=== PATIENT | male | born 1960 | race Caucasian/White ===

== ENCOUNTER → 2017-04-02 | Outpatient (CLI) | payer OTHER | LOC: RAD 14:43 | PROVIDERS: ATTEND Internal Medicine Hematology & Oncology | DX: C90.01 Multiple myeloma in remission (principal); C20 Malignant neoplasm of rectum | CPT/HCPCS: 77075 ==

== ENCOUNTER → 2019-04-17 | Outpatient (CLI) | payer BC ==
--- NOTE | 2019-04-17 16:07 | RADIOLOGY REPORT (SQ) ---
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 LIMITATIONS: None. FINDINGS: AP CHEST: No bony findings. Lungs are clear. LATERAL SKULL: Small lytic lesions, stable. AP BOTH HUMERI: No worrisome bone lesions. TWO-VIEW LUMBAR SPINE: No worrisome bone lesions. TWO-VIEW THORACIC SPINE: No worrisome bone lesions. AP PELVIS: Stable bone cyst left inferior pubic ramus. AP BOTH FEMURS: No worrisome bone lesions. OTHER: No other significant finding. IMPRESSION: Stable lytic lesions in the skull. No significant change. TECHNICAL DOCUMENTATION: JOB ID: [id number] [employer]- All Rights Reserved Reading location - IP/workstation name: [email or web address]
== END ==
LOC: RAD 14:47
PROVIDERS: ATTEND Internal Medicine Hematology & Oncology
DX: C90.01 Multiple myeloma in remission (principal); C20 Malignant neoplasm of rectum
CPT/HCPCS: 77075

== ENCOUNTER 2019-06-22 13:33 | Emergency (ER) | payer BC ==
[2019-06-22 13:49] VITALS: BP 128/72
--- NOTE | 2019-06-22 15:03 | ER Document Report ---
HPI - HPI Patient complains to provider of: Wound recheck Time Seen by Provider: 06/22/19 14:47 Pain Level: 2 Context: Patient is a 51-year-old male presents to the emergency department for redness and swelling to his right lower extremity. Patient was seen at this facility on 06/19/2019 for same. Was placed on 2 oral antibiotics, Keflex, Bactrim. States he has been taking them as prescribed. States he returns to the emergency department for a wound recheck. States he feels as though the redness and swelling has decreased significantly. Denies fevers. States due to his profession he is unable to sit down or elevate the leg throughout most of the day. Past Medical History - General Information source: Patient - Social History Smoking Status: Unknown if Ever Smoked Family History: Reviewed & Not Pertinent - Past Medical History Cardiac Medical History: Denies: Hx Heart Attack, Hx Hypertension Pulmonary Medical History: Denies: Hx Asthma Neurological Medical History: Denies: Hx Cerebrovascular Accident, Hx Seizures Renal/ Medical History: Denies: Hx Peritoneal Dialysis GI Medical History: Denies: Hx Hepatitis, Hx Ulcer Infectious Medical History: Denies: Hx Hepatitis Past Surgical History: Denies: Hx Open Heart Surgery, Hx Pacemaker Vertical Provider Document - CONSTITUTIONAL Agree With Documented VS: Yes Notes: GENERAL: Alert, interacts well. No acute distress. HEAD: Normocephalic, atraumatic. EYES: Pupils equal, round, and reactive to light. Extraocular movements intact. ENT: Oral mucosa moist, tongue midline. NECK: Full range of motion. Supple. Trachea midline. LUNGS: Clear to auscultation bilaterally, no wheezes, rales, or rhonchi. No respiratory distress. HEART: Regular rate and rhythm. No murmur ABDOMEN: Soft, non-tender. Non-distended. Bowel sounds present in all 4 quadrants. EXTREMITIES: Moves all 4 extremities spontaneously. normal radial and dorsalis pedis pulses bilaterally. Erythema noted to the right lower extremity with swelling. BACK: no cervical, thoracic, lumbar midline tenderness. No saddle anesthesia, normal distal neurovascular exam. NEUROLOGICAL: Alert and oriented x3. Normal speech. cranial nerves II through XII grossly intact PSYCH: Normal affect, normal mood. SKIN: Warm, dry, normal turgor. No rashes or lesions noted. - INFECTION CONTROL TRAVEL OUTSIDE OF THE [place] IN LAST 30 DAYS: No Course - Re-evaluation Re-evalutation: 06/22/19 14:57 Patient had the erythema noted to his right lower extremity outlined in surgical marker on 06/19/2019 at his visit to the emergency department. At today's visit the swelling has receded to fci down his calf. I have remarked with a surgical marker. I have discussed continued use of antibiotics prescribed with close follow-up with primary care provider. Discussed close return precautions should the erythema or swelling go above the surgical marker placed at today's visit. Patient continues to deny fevers and is overall agreement with the plan. At this time will discharge with return precautions and follow-up recommendations. Verbal discharge instructions given a the bedside and opportunity for questions given. Medication warnings reviewed. Patient is in agreement with this plan and has verbalized understanding of return precautions and the need for primary care follow-up in the next 24-72 hours. This medical record was dictated with voice recognizing software. There may be grammatical, syntax errors that are unintended. - Vital Signs Vital signs: Temp Pulse Resp BP Pulse Ox 98.0 F 84 19 128/72 H 97 06/22/19 13:47 06/22/19 13:47 06/22/19 13:47 06/22/19 13:47 06/22/19 13:47 Discharge - Discharge Clinical Impression: Encounter for wound re-check Cellulitis Qualifiers: Site of cellulitis: extremity Site of cellulitis of extremity: lower extremity Laterality: right Qualified Code(s): L03.115 - Cellulitis of right lower limb Condition: Stable Disposition: HOME, SELF-CARE Instructions: Cellulitis ([facility]) Additional Instructions: As we discussed you have been seen and treated in the emergency department for redness and swelling noted to your right lower extremity. At today's visit the redness and swelling does appear to be getting better. Patient should continue to take oral antibiotics as prescribed. Please also make sure you follow-up with your primary care provider in the next 24 to 48 hours. Please make sure you return to the emergency room should the redness or swelling go above the surgical marker hopefully today or you have any other concerns. Referrals: FOREIGN OLVERA MD [Primary Care Provider] - Follow up as needed
== END 2019-06-22 15:07 | disposition home or self-care (01) ==
LOC: ER 13:33
DX: L03.115 Cellulitis of right lower limb (principal)
CPT/HCPCS: 99282

== ENCOUNTER 2020-02-24 10:44 | Emergency (ER) | payer BC ==
[2020-02-24] MEDS ORDERED: CLINDAMYCIN 600 MG/D5W RTU 600 MG/50 ML RTUPB IV ONE (11:15)
[2020-02-24 11:40] LABS: ABSOLUTE LYMPHOCYTES (AUTO) 0.6 10^3/uL (0.5-4.7); ABSOLUTE MONOCYTES (AUTO) 0.5 10^3/uL (0.1-1.4); ABSOLUTE NEUT (AUTO) 7.8 10^3/uL (1.7-8.2); BASOPHILS % (AUTO) 0.2 % (0-2); HEMATOCRIT 38.9 % (37.9-51.0); HEMOGLOBIN 13.8 g/dL (13.5-17.0); LYMPHOCYTES % (AUTO) 6.4 % (13-45); MEAN CORPUSCULAR HEMOGLOBIN 29.7 pg (27.0-33.4); MEAN CORPUSCULAR HGB CONC 35.5 g/dL (32.0-36.0); MEAN CORPUSCULAR VOLUME 84 fl (80-97); MONOCYTES % (AUTO) 5.1 % (3-13); PLATELET COUNT 123 10^3/uL (150-450); RED BLOOD COUNT 4.64 10^6/uL (4.35-5.55); RED CELL DISTRIBUTION WIDTH 13.8 % (11.5-14.0); SEGMENTED NEUTROPHILS % (AUTO) 88.3 % (42-78); TOTAL CELLS COUNTED % (AUTO) 100 %; WHITE BLOOD COUNT 8.8 10^3/uL (4.0-10.5)
[2020-02-24 12:01] LABS: ALBUMIN 3.5 g/dL (3.5-5.0); ALKALINE PHOSPHATASE 66 U/L (38-126); ANION GAP 6 (5-19); ASPARTATE AMINO TRANSFERASE 50 U/L (17-59); BILIRUBIN,TOTAL 0.9 mg/dL (0.2-1.3); BLOOD UREA NITROGEN 16 mg/dL (7-20); CALCIUM 8.7 mg/dL (8.4-10.2); CARBON DIOXIDE 27 mmol/L (22-30); CHLORIDE 98 mmol/L (98-107); CREATINE KINASE 556 U/L (55-170); GLUCOSE 123 mg/dL (75-110); POTASSIUM 3.8 mmol/L (3.6-5.0); TOTAL PROTEIN 6.1 g/dL (6.3-8.2)
[2020-02-24 12:19] LABS: APPEARANCE,URINE SLIGHTLY-CLOUDY; BILIRUBIN,URINE NEGATIVE (NEGATIVE); COLOR,URINE AMBER; GLUCOSE, URINE NEGATIVE (NEGATIVE); KETONES,URINE NEGATIVE (NEGATIVE); LEUKOCYTE ESTERASE,URINE NEGATIVE (NEGATIVE); NITRITE,URINE NEGATIVE (NEGATIVE); PROTEIN,URINE 100 mg/dL (NEGATIVE); URINE SPECIFIC GRAVITY 1.025
--- NOTE | 2020-02-24 12:55 | ER Document Report ---
Entered by BENITO TEJEDA SCRIBE 02/24/20 1055 Acting as scribe for:DIMAS BEACH MD ED Extremity Problem, Lower - General Chief Complaint: Leg Pain Stated Complaint: LEG PAIN Time Seen by Provider: 02/24/20 10:49 Primary Care Provider: GERHARD OSUNA PA-C [COMMUNITY BASED STAFF] - Follow up as needed Mode of Arrival: Ambulatory Information source: Patient Notes: This 60 year old male patient presents to the emergency department today with complaints of right lower extremity swelling and erythema with associated fevers. Patient states that he has had chronic dermatitis but was told he had no venous insufficiency. Patient states he had generalized fatigue yesterday and a temperature of 102, which is when he first noted his right lower extremity. This 60-year-old male patient reports that his had him go for 3 mile walk on lunch break few days ago. He woke up yesterday morning and felt drained and had a temperature of 102. Yesterday he started developing some inflammation and redness to his right lower leg, and he felt weak and tired. This morning his temperature was 101 and the redness and swelling of the leg was worse. His history is significant for similar cellulitis in the same place, seen here on 06/19/2019 and was treated with 10-day course of Keflex and Septra. It did improve quite a lot but did not completely resolve. He saw his primary care provider on 07/03/2019 and was put on a 7-day course of clindamycin and states it cleared completely following that course of clindamycin. He does wear compression hose due to the edema to his lower extremities, and has a job requiring him to be up on his feet all day. He is not very compliant about elevating his feet at home. TRAVEL OUTSIDE OF THE [place] IN LAST 30 DAYS: No - Related Data Allergies/Adverse Reactions: ibuprofen [Ibuprofen] Allergy (Verified 02/24/20 10:54) SWELLING/HARD TO SWALLOW peanut Allergy (Verified 02/24/20 12:21) SWELLING/REDNESS/HARD TO SWALLOW Past Medical History - General Information source: Patient - Social History Smoking Status: Never Smoker Cigarette use (# per day): No Frequency of alcohol use: None Drug Abuse: None Occupation: [employer] Lives with: Family Family History: Reviewed & Not Pertinent Renal/ Medical History: Reports: Hx Benign Prostatic Hyperplasia Malignancy Medical History: Reports Hx Bone Cancer, Reports Hx Colorectal Cancer Past Surgical History: Reports: Hx Colostomy - reversed, Hx Herniorrhaphy, Other - distal colectomy Review of Systems - Review of Systems Constitutional: See HPI, Fever EENT: No symptoms reported Cardiovascular: No symptoms reported Respiratory: No symptoms reported Gastrointestinal: No symptoms reported Genitourinary: No symptoms reported Male Genitourinary: No symptoms reported Musculoskeletal: See HPI, Other - right lower extremity redness/swelling Skin: No symptoms reported Hematologic/Lymphatic: No symptoms reported Neurological/Psychological: No symptoms reported -: Yes All other systems reviewed and negative Physical Exam - Vital signs Vitals: Temp Pulse Resp BP Pulse Ox 99.1 F 111 H 18 151/82 H 95 02/24/20 10:50 02/24/20 10:50 02/24/20 10:50 02/24/20 10:50 02/24/20 10:50 - Notes Notes: Physical Exam: General: Alert, appears well. HEENT: Normocephalic. Atraumatic. PERRL. Extraocular movements intact. Oropharynx clear. Neck: Supple. Non-tender. Respiratory: No respiratory distress. Clear and equal breath sounds bilaterally. Cardiovascular: Regular rate and rhythm. Abdominal: Normal Inspection. Non-tender. No distension. Normal Bowel Sounds. Back: No gross abnormalities. Extremities: Moves all four extremities. Upper extremities: Normal inspection. Normal ROM. Lower extremities: Right lower extremity is grossly swollen with 2+ pitting edema. Erythema up to the level of the knee, mostly anteriorly. This area is also very warm to the touch. There is tenderness with palpation to the RLE tracking along the saphenous vein without lymphangitic streaking. The calf is soft and much less tender than the anterior leg. Left lower extremity is normal other than some mild edema and the patient does have compression stocking on. Neurological: Normal cognition. AAOx4. Normal speech. Psychological: Normal affect. Normal Mood. Skin: see lower extremity exam Course - Vital Signs Vital signs: Temp Pulse Resp BP Pulse Ox 99.8 F 93 18 151/82 H 96 02/24/20 12:27 02/24/20 11:58 02/24/20 10:50 02/24/20 10:50 02/24/20 11:58 - Laboratory Result Diagrams: 02/24/20 11:25 02/24/20 11:25 Laboratory results interpreted by me: 02/24/20 02/24/20 02/24/20 11:25 11:25 11:40 Plt Count 123 L Lymph % (Auto) 6.4 L Seg Neutrophils % 88.3 H Sodium 131.3 L Glucose 123 H Creatine Kinase 556 H Total Protein 6.1 L Urine Protein 100 H Urine Blood SMALL H Urine Urobilinogen 2.0 H Discharge - Discharge Clinical Impression: Cellulitis of leg without foot, right Fever Qualifiers: Fever type: unspecified Qualified Code(s): R50.9 - Fever, unspecified Condition: Stable Disposition: HOME, SELF-CARE Additional Instructions: Cellulitis You have an infection of your skin and underlying soft tissues called cellulitis. This is due to bacteria, which can enter through any break in the skin, or even through an irritated hair follicle. Untreated, cellulitis will usually worsen. Antibiotics are required. Usually, warm packs or warm soaks, and elevation of the infected area are recommended. You should start getting better within 24 to 36 hours. Most infections respond quickly to the right medication. Follow-up care is important, however, to check for abscess (boil) formation, unsuspected foreign body, or resistant infection. If you develop fever, chills, or if the area of infection is becoming rapidly more swollen or painful, call the doctor at once. Take medication as prescribed. Elevate your leg at or above the level of your heart as much as possible. Limit walking as much as possible. Take medication as prescribed. Take Tylenol every 4 hours for fever or pain as needed. Follow-up with Dr. Bhandari on Wednesday to recheck your leg. Return to the emergency room if the redness, swelling, or pain gets worse. RETURN TO THE EMERGENCY ROOM IF ANY NEW OR WORSENING SYMPTOMS. Prescriptions: Clindamycin HCl 300 mg PO QID #40 capsule Referrals: KAROL BHANDARI MD [Primary Care Provider] - 02/26/20 I personally performed the services described in the documentation, reviewed and edited the documentation which was dictated to the scribe in my presence, and it accurately records my words and actions.
[2020-02-24 14:00] VITALS: BP 133/71
== END 2020-02-24 13:58 | disposition home or self-care (01) ==
LOC: ER 10:44
DX: L03.115 Cellulitis of right lower limb (principal); R50.9 Fever, unspecified; M79.604 Pain in right leg; R53.83 Other fatigue; Z88.6 Allergy status to analgesic agent; Z91.010 Allergy to peanuts
CPT/HCPCS: 36415; 80053; 81001; 82550; 85025; 87040; 96365; 99283